=== PATIENT | male | born 1945 | race Caucasian/White ===

== ENCOUNTER 2018-11-02 19:23 | Emergency (ER) | payer OTHER, MEDICARE ==
[2018-11-02 19:42] VITALS: BP 121/64; PULSE 103; TEMP 97.8; BMI 26.6
--- NOTE | 2018-11-02 20:10 | PDOC ---
History of Present Illness - General Chief Complaint: Wound Stated Complaint: LFT FOOT SWOLLEN Time Seen by Provider: 11/02/18 20:05 History Source: Patient - History of Present Illness Initial Comments: 11/02/18 22:31 73-year-old male with past medical history of hypertension complaining of slip and fall off a ladder 3 days ago. Reports an abrasion to the left laurent today with increased redness, swelling and pain to the left lower extremity. Denies fevers/chills. Patient reports similar infection 6 years ago from an abrasion. Patient reports last tetanus one year ago. Past History - Past Medical History Allergies/Adverse Reactions: Allergies Allergy/AdvReac Type Severity Reaction Status Date / Time No Known Allergies Allergy Verified 11/02/18 19:38 Home Medications: Ambulatory Orders Aspirin [ASA] 81 mg PO DAILY 09/12/12 Olmesartan/Amlodipin/Hcthiazid [Tribenzor 40-5-25 mg Tablet] 1 each PO DAILY Coq-10 1 tab PO 09/22/12 Fish Oil Softgel 1 tab PO DAILY 09/22/12 Glucosamine 1 tab PO DAILY 09/22/12 Multivitamin 1 tab PO DAILY 09/22/12 Vitamin C 1 tab PO DAILY 09/22/12 Cephalexin Monohydrate [Keflex -] 500 mg PO Q8H #28 capsule 11/02/18 Sulfamethoxazole/Trimethoprim [Bactrim Ds -] 1 tab PO BID #14 tablet 11/02/18 COPD: No HTN: Yes Hypercholesterolemia: Yes - Suicide/Smoking/Psychosocial Hx Smoking Status: No Smoking History: Never smoked Number of Cigarettes Smoked Daily: 0 Hx Alcohol Use: No Drug/Substance Use Hx: No Substance Use Type: None *Physical Exam - Vital Signs Last Vital Signs Temp Pulse Resp BP Pulse Ox 97.8 F 103 H 20 121/64 94 L 11/02/18 19:38 11/02/18 19:38 11/02/18 19:38 11/02/18 19:38 11/02/18 19:38 - Physical Exam General Appearance: Yes: Appropriately Dressed Cardiovascular: positive: Regular Rhythm, Regular Rate Extremity: positive: Normal Capillary Refill, Swelling, Calf Tenderness, Erythema, Inflammation, Other Integumentary: positive: Normal Color, Warm, Clammy Neurologic: positive: Fully Oriented, Alert ED Treatment Course - LABORATORY CBC & Chemistry Diagram: 11/02/18 21:30 11/02/18 21:30 Progress Note - Progress Note Progress Note: A:DVT; Cellulitis P: antibiotics cbc cmp US: partial DVT of the popliteal vein Xray Medical Decision Making - Medical Decision Making 11/02/18 23:[address] aguiar consulted for possible admission. will try outpatient management for partial DVT + cellulitis. 11/03/18 0000 Patient's insurance will cover the medication patient was started on eliquis, all safety info given to patient. patient to follow up with with PCP dr Mercer *DC/Admit/Observation/Transfer Diagnosis at time of Disposition: Cellulitis and abscess of left leg DVT (deep venous thrombosis) Qualifiers: DVT location: lower extremity Affected thrombotic vein of extremity: popliteal Chronicity: acute Laterality: left Qualified Code(s): I82.432 - Acute embolism and thrombosis of left popliteal vein - Discharge Dispostion Disposition: HOME Condition at time of disposition: Stable Decision to Admit order: No - Prescriptions Prescriptions: Cephalexin Monohydrate [Keflex -] 500 mg PO Q8H #28 capsule Sulfamethoxazole/Trimethoprim [Bactrim Ds -] 1 tab PO BID #14 tablet - Referrals - Patient Instructions Printed Discharge Instructions: Cellulitis Additional Instructions: Please follow up with your doctor in 1-2 days start Eliquis. this wAS ordered to your pharmacy Eliquis 10 mg twice daily for 7 days and then eliquis 5 mg twice daily . please follow up with Dr. Mercer as soon as possible. Additional Instructions: * Please call your personal physician to report your Emergency Department visit and to report your progress, if any. * If there is no improvement in symptoms in 2 days call your physician. * Return to the Emergency Department for any worsening symptoms. - Post Discharge Activity Forms/Work/School Notes: Back to Work
[2018-11-02] MEDS ORDERED: CEFAZOLIN 1 GM in DEXTROSE 5%-WATER - 50 ML IVPB ONE (20:22)
[2018-11-02] MEDS ORDERED: CEFAZOLIN 1 GM/D5W 1 GM/50 ML BAG ONE (21:14)
[2018-11-02] MEDS ORDERED: SULFAMETHOXAZOLE/TRIMETHOPRIM 800MG/160MG D.S. TABLET PO ONE (21:24)
[2018-11-02 21:36] LABS: BASO % 0.5 % (0-2.0); EOS % 5.4 % (0-4.5); HEMATOCRIT 42.9 % (35.4-49); HEMOGLOBIN 14.9 GM/dL (11.7-16.9); LYMPH % 22.2 % (8-40); MCH 33.7 pg (25.7-33.7); MCHC 34.8 g/dl (32.0-35.9); MEAN CELL VOLUME 97.1 fl (80-96); MEAN PLT VOLUME 9.2 fl (7.5-11.1); MONO % 8.3 % (3.8-10.2); NEUT % 63.6 % (42.8-82.8); PLATELET COUNT 256 K/MM3 (134-434); RBC 4.42 M/mm3 (4.00-5.60); RDW 13.5 % (11.9-15.9); WHITE BLOOD COUNT 10.1 K/mm3 (4.0-10.0)
[2018-11-02] MEDS ORDERED: SULFAMETHOXAZOLE/TRIMETHOPRIM 800MG/160MG D.S. TABLET ONE (21:51)
--- NOTE | 2018-11-02 21:59 | PDOC ---
*Physical Exam - Vital Signs Last Vital Signs Temp Pulse Resp BP Pulse Ox 97.8 F 103 H 20 121/64 94 L 11/02/18 19:38 11/02/18 19:38 11/02/18 19:38 11/02/18 19:38 11/02/18 19:38 ED Treatment Course - LABORATORY CBC & Chemistry Diagram: 11/02/18 21:30 11/02/18 21:30 - ADDITIONAL ORDERS Additional order review: 11/02/18 21:30 RBC 4.42 MCV 97.1 H MCHC 34.8 RDW 13.5 MPV 9.2 Neutrophils % 63.6 Lymphocytes % 22.2 Monocytes % 8.3 Eosinophils % 5.4 H Basophils % 0.5 - Medications Given in the ED: ED Medications Discontinued Medications Generic Name Dose Route Start Last Admin Trade Name Freq PRN Reason Stop Dose Admin Cefazolin Sodium 1 gm/ 50 mls @ 100 mls/hr 11/02/18 20:22 11/02/18 21:32 Dextrose IVPB 11/02/18 20:51 100 mls/hr ONCE ONE Administration Trimethoprim/Sulfamethoxazole 1 each 11/02/18 21:24 11/02/18 21:53 Bactrim Ds - PO 11/02/18 21:25 1 each ONCE ONE Administration Medical Decision Making - Medical Decision Making 11/02/18 21:58 I agree with mid level provider 's assessment and management of this case. Impression : early cellulits,local wound and swollen left calf with concern for DVT *DC/Admit/Observation/Transfer Diagnosis at time of Disposition: DVT (deep venous thrombosis), Cellulitis and abscess of left leg - Referrals - Patient Instructions - Post Discharge Activity
[2018-11-02 22:08] LABS: ALBUMIN 4.4 g/dl (3.4-5.0); BILIRUBIN,TOTAL 0.6 mg/dL (0.2-1); CALCIUM 9.3 mg/dL (8.5-10.1); POTASSIUM 3.9 mmol/L (3.5-5.1)
[2018-11-02] MEDS ORDERED: APIXABAN 5 MG TABLET PO ONE (23:30)
[2018-11-03] MEDS ORDERED: APIXABAN 5 MG TABLET PO ONE (00:12)
--- NOTE | 2018-11-03 11:03 | EKG ---
Test Reason : Blood Pressure : / mmHG Vent. Rate : 085 BPM Atrial Rate : 085 BPM P-R Int : 140 ms QRS Dur : 088 ms QT Int : 380 ms P-R-T Axes : 058 044 042 degrees QTc Int : 452 ms NORMAL SINUS RHYTHM NORMAL ECG NO PREVIOUS ECGS AVAILABLE Confirmed by CARY BLEVINS MD ([id number]) on 11/03/2018 11:02:56 AM Referred By: Confirmed By:CARY BLEVINS MD
== END 2018-11-03 00:23 | disposition home or self-care (01) ==
LOC: JERFT 19:23 → JER 19:23
DX: L03.116 Cellulitis of left lower limb (principal); I82.432 Acute embolism and thrombosis of left popliteal vein; W11.XXXA Fall on and from ladder, initial encounter; Y93.89 Activity, other specified; Y92.89 Other specified places as the place of occurrence of the external cause; Y99.8 Other external cause status
CPT/HCPCS: 36415; 73590-TC-LT-FY; 80053; 85025; 93005; 93010; 93971-TC; 96365; 99281-25

== ENCOUNTER 2023-10-16 12:47 | Inpatient (IN) | payer OTHER, MEDICARE ==
[2023-10-16 13:56] LABS: INR 1.11 (0.83-1.09); PROTHROMBIN TIME (PATIENT) 12.6 SEC (9.7-13.0)
[2023-10-16 13:59] LABS: ACTIVATED PTT 32.2 SECONDS (25.2-36.5)
[2023-10-16 14:00] LABS: HEMATOCRIT 44.3 % (35.4-49); HEMOGLOBIN 15.3 G/dL (11.7-16.9); MCH 34.1 pg (25.7-33.7); MCHC 34.4 g/dl (32.0-35.9); MEAN CELL VOLUME 98.9 fl (80-96); MEAN PLT VOLUME 9.6 fl (7.5-11.1); PLATELET COUNT 198.7 10^3/uL (134-434); RBC 4.48 10^6/uL (4.00-5.60); RDW 13.2 % (11.9-15.9)
[2023-10-16 14:09] LABS: ALBUMIN 4.5 g/dl (3.4-5.0); CALCIUM 9.7 mg/dl (8.5-10.1); CREATININE 0.8 mg/dl (0.6-1.3); POTASSIUM 3.5 mmol/L (3.5-5.1); TOT PROT 7.2 g/dl (6.4-8.2)
[2023-10-16] MEDS ORDERED: LABETALOL HCL 5 MG/1 ML (100MG/20 ML VIAL) ONE (16:07)
[2023-10-16] MEDS: LABETALOL HCL 5 MG/1 ML (100MG/20 ML VIAL) IVPUSH ONE (16:17)
[2023-10-16 17:52] VITALS: BMI 21.4
[2023-10-16 18:20] LABS: EPI CELLS 1 /uL (0-25.1); HYALINE CASTS 0 /uL (0-3.1); URINE APPEARANCE CLEAR; URINE BACTERIA 3 /uL (0-1359); URINE BILIRUBIN NEGATIVE (NEGATIVE); URINE COLOR YELLOW; URINE GLUCOSE (UA) NEGATIVE (NEGATIVE); URINE KETONE 2+ (NEGATIVE); URINE LEUK ESTERASE NEGATIVE (NEGATIVE); URINE NITRITE NEGATIVE (NEGATIVE); URINE PROTEIN NEGATIVE (NEGATIVE); URINE RBC 190 /uL (0-23.9); URINE UROBILINOGEN 0.2 mg/dL (0.2-1.0); URINE WBC 3 /uL (0-25.8)
[2023-10-16] MEDS: amLODIPine BESYLATE 5 MG TABLET (FP) PO SCH (18:53)
[2023-10-16] MEDS ORDERED: NICARDIPINE 25 MG in DEXTROSE 5%-WATER - 240 ML IVPB SCH (19:45)
[2023-10-16] MEDS: CHLORHEXIDINE GLUCONATE 4% CLEANSER FOR DECOLONIZATION TP SCH (23:00)
[2023-10-16] MEDS: MUPIROCIN 2% TOPICAL OINTMENT FOR DECOLONIZATION NS SCH (23:00)
[2023-10-17 05:57] VITALS: TEMP 98.5
[2023-10-17 05:58] VITALS: BP 179/88; PULSE 70; RESP 25
== END 2023-10-17 03:00 | disposition short-term general hospital (02) | DRG 66 ==
LOC: FER 12:47 → JICU 16:57
PROVIDERS: ADMIT Internal Medicine; ATTEND Internal Medicine
DX: I62.01 Nontraumatic acute subdural hemorrhage (principal); I10 Essential (primary) hypertension; H26.9 Unspecified cataract; R41.82 Altered mental status, unspecified; R51.9 Headache, unspecified; N40.0 Benign prostatic hyperplasia without lower urinary tract symptoms; H50.9 Unspecified strabismus; Z86.718 Personal history of other venous thrombosis and embolism
CPT/HCPCS: 0241U-QW; 36415; 70450-TC; 70496-TC; 71045-TC-FY; 80053; 81003; 82550; 82962; 83735; 84484; 85027; 85610; 85730; 86850; 86900; 86901; 87086; 93005; 99291; Q9967

== ENCOUNTER 2024-02-02 19:57 | Emergency (ER) | payer OTHER, MEDICARE ==
[2024-02-02 20:14] VITALS: BP 138/89; PULSE 78; RESP 18; TEMP 98.4; BMI 25.0
[2024-02-02] MEDS ORDERED: ACETAMINOPHEN 325 MG TABLET (FP) ONE (20:43)
[2024-02-02] MEDS: ACETAMINOPHEN 325 MG TABLET (FP) PO ONE (20:57)
[2024-02-02] MEDS ORDERED: CEPHALEXIN MONOHYDRATE 500 MG CAPSULE (UD) ONE (22:26)
[2024-02-02] MEDS: CEPHALEXIN MONOHYDRATE 500 MG CAPSULE (UD) PO ONE (22:32)
== END 2024-02-02 23:00 | disposition home or self-care (01) ==
LOC: FER 19:57
PROC: 0HQ1XZZ Repair Face Skin, External Approach (ICD-10-PCS; principal; 2024-02-02)
DX: S01.81XA Laceration without foreign body of other part of head, initial encounter (principal); W01.0XXA Fall on same level from slipping, tripping and stumbling without subsequent striking against object, initial encounter
CPT/HCPCS: 70110-TC-FY; 70450-TC; 70486-TC; 72125-TC; 99284-25